=== PATIENT | male | born 1960 | race Caucasian/White ===

== ENCOUNTER 2018-12-18 06:29 | Observation (INO) | payer BC ==
[2018-12-17 12:31] LABS: Absolute Lymphocytes (CBC) 1.9 K/uL (0.7-4.9); Basophils % 0.9 % (0-1.3); Hematocrit 41.1 % (39.6-49.0); RBC Red Blood Cell Count 4.55 M/uL (4.33-5.43)
[2018-12-17 12:42] LABS: Protime INR 0.87
[2018-12-17 12:51] LABS: Potassium 4.1 mmol/L (3.5-5.1)
--- NOTE | 2018-12-17 12:58 | RAD REPORT ---
EXAM DESCRIPTION: RAD - Chest Pa And Lat (2 Views) - 12/17/2018 12:33 pm CLINICAL HISTORY: PREOP Chest pain. COMPARISON: No comparisons FINDINGS: The lungs are clear. The heart is normal in size. No displaced fractures. IMPRESSION: No acute or concerning finding suspected.
--- NOTE | 2018-12-17 15:51 | EKG ---
Test Date: 2018-12-17 Test Time: 12:01:19 Test Design Engineer: [place] MEASUREMENT RESULTS: Intervals: Rate: 84 [place]: 174 QRSD: 96 QT: 380 QTc: 449 [place]: P: 59 [place]: 174 QRS: -1 T: 2 INTERPRETIVE STATEMENTS: Normal sinus rhythm Septal infarct, age undetermined Abnormal ECG No previous ECG available for comparison Electronically Signed On 12-17-18 15:50:17 CDT by Chirag Campbell
[2018-12-18] MEDS ORDERED: LIDOCAINE 1% MPF 30 ML VIAL ONE (06:48)
[2018-12-18] MEDS ORDERED: HEPA 1000U/500MLS 1,000 UNIT/500 ML BAG IV ONE (06:48)
[2018-12-18] MEDS ORDERED: NA CHLORIDE 0.9% 500 ML ONE (06:48)
[2018-12-18] MEDS ORDERED: MIDAZOLAM HCL 2 MG/2 ML INJ ONE (07:30)
[2018-12-18] MEDS ORDERED: FENTANYL CITR 100 MCG/2 ML ONE (07:30)
[2018-12-18] MEDS ORDERED: ATROPINE SULF 1 MG/10 ML SYR IV ONE (07:31)
[2018-12-18] MEDS ORDERED: NA CHLORIDE 0.9% 50 ML ONE (07:31)
[2018-12-18] MEDS ORDERED: NITROGLYCERIN/D5W 25 MG/250 ML BTL IV ONE (08:04)
[2018-12-18] MEDS ORDERED: NITROGLYCERIN 100 MCG/ML SYR (for cath lab use only) IV ONE (08:04)
[2018-12-18] MEDS ORDERED: PRASUGREL (EFFIENT) 10 MG TAB ONE ×2 (08:10→08:18)
[2018-12-18] MEDS ORDERED: ASPIRIN 325 MG TAB ONE ×2 (08:17→08:28)
[2018-12-18] MEDS ORDERED: MORPHINE 4 MG/ML SYR IV PRN ×2 (09:28→14:00)
[2018-12-18] MEDS ORDERED: NITROGLYCERIN 0.4 MG/TAB SL PRN (09:30)
[2018-12-18] MEDS ORDERED: ACETAMINOPHEN 325 MG TABLET PO PRN (09:32)
[2018-12-18] MEDS ORDERED: NA CHLORIDE 0.9% 1,000 ML IV SCH (10:00)
[2018-12-18 11:46] VITALS: BMI 32.8
[2018-12-18] MEDS ORDERED: MORPHINE 2 MG/ML SYR IV PRN (13:18)
[2018-12-18 13:20] VITALS: O2SAT 97
--- NOTE | 2018-12-18 18:29 | OP ---
Date of Procedure: 12/18/2018 Surgeon: Sergio Puga MD Networking Specialist: Melvina Bejarano. The patient will be staying overnight and going home in the morning and I will see him in the office in next 2 weeks. Description Of Procedure: Mr. Garza is 58, has diabetes, dyslipidemia, chest pain, positive str ess test, scheduled as an outpatient for heart catheterization. He was brought to the labor relations worker as an outpatient today on 12/18/2018. He was prepped and draped in e routine sterile fashion, underwent a left heart catheterization, selective coronary arteriogram, an d primary LAD stent. Mr. Garza had a catheterization done with 6-[place] Jennifer catheter left a nd right respectively. He was found to have 100% occlusion of an RCA, which is very large and right- dominant. He had a 60% to 70% first diagonal. He had an 80% mid LAD after the first diagonal with c ollaterals to the RCA. He had a normal circumflex with collateral to the RCA as well. An XB LAD 3.5 guide was used to cannulate the left main. A [place] wire was used to cross the LAD. A 2.5 x 12 Syn ergy stent was placed in the mid LAD successfully with 0% residual. It was placed at 14 atmosphere. I decided to treat the RCA lesion as well as the diagonal lesion medically for now. There were no c omplications. Blood Loss: 5 mL. Postoperative Diagnosis: Coronary artery disease, severe, status post successful primary stent of th e mid LAD. 100% occlusion of the dominant RCA with collaterals from the LAD. Moderate diagonal dise ase, treated medically. The patient received Angiomax, aspirin, and Effient during the procedure. ENMANUEL/JOSE Voice ID: [id number] Report ID: [id number]
[2018-12-18] MEDS: CARVEDILOL 25 MG TAB PO SCH (20:25)
[2018-12-18] MEDS ORDERED: ATORVASTATIN 80 MG TAB PO SCH (21:00)
[2018-12-19 04:40] LABS: Absolute Lymphocytes (CBC) 2.3 K/uL (0.7-4.9); Basophils % 0.7 % (0-1.3); Hematocrit 38.6 % (39.6-49.0); Lymphocytes % 41.8 % (15.3-44.8); MPV 8.8 fL (7.6-11.3); RBC Red Blood Cell Count 4.24 M/uL (4.33-5.43)
[2018-12-19 05:02] LABS: BUN Blood Urea Nitrogen 13 mg/dL (7-18); Bicarbonate 29 mmol/L (21-32); Glucose Level 170 mg/dL (74-106); Potassium 4.3 mmol/L (3.5-5.1); Sodium Level 139 mmol/L (136-145)
[2018-12-19 05:22] LABS: Urine Appearance CLOUDY; Urine Bilirubin NEGATIVE (NEG); Urine Blood NEGATIVE (NEG); Urine Color YELLOW; Urine Glucose 1+ (NEG); Urine Microscopic Reflex ORDER UMIC; Urine Protein NEGATIVE (NEG); Urine pH 5.5 (5.0-7.0)
[2018-12-19 05:29] LABS: Urine Bacteria LOADED /HPF (NONE SEEN); Urine Culture Reflex Order REFLEXED; Urine RBC NONE SEEN /HPF (NONE SEEN)
[2018-12-19] MEDS: ASPIRIN 81 MG CHEWABLE TABLET PO SCH ×2 (07:54→07:58)
[2018-12-19] MEDS: CARVEDILOL 25 MG TAB PO SCH (07:58)
[2018-12-19 07:59] VITALS: BP 145/79
[2018-12-19] MEDS ORDERED: FARXIGA 5MG PO SCH (09:00)
[2018-12-19] MEDS ORDERED: CLOPIDOGREL 75 MG TABLET PO SCH (09:00)
[2018-12-19 09:28] VITALS: TEMP 98.2
== END 2018-12-19 11:55 | disposition home or self-care (01) ==
LOC: CCL 06:29 → 4TH 08:15
DX: I25.118 Atherosclerotic heart disease of native coronary artery with other forms of angina pectoris (principal); I25.82 Chronic total occlusion of coronary artery; I10 Essential (primary) hypertension; E78.2 Mixed hyperlipidemia; E11.9 Type 2 diabetes mellitus without complications; K21.9 Gastro-esophageal reflux disease without esophagitis; Z88.0 Allergy status to penicillin; Z87.891 Personal history of nicotine dependence; Z79.82 Long term (current) use of aspirin
CPT/HCPCS: 93005; 87088; 85025 ×2; 87086; 80048 ×2; 36415 ×2; 85610; 82962 ×5; 85347 ×2; 85730; 87077; 87186; 71046; 92928; 93454; G0379; C1893; C1760; C1725; C1877; J2250; J3010; J0583; J7040; G0378 ×3; 81003; 81015